=== PATIENT | male | born 1960 | race Caucasian/White ===

== ENCOUNTER 2022-10-19 08:21 | Emergency (ER) | payer OTHER ==
[2022-10-19] MEDS ORDERED: Amiodarone 150 MG/3 ML VIAL ONE (08:41)
[2022-10-19] MEDS ORDERED: fentaNYL 50 mcg/mL 1 mL Vial ONE ×2 (08:43→08:55)
[2022-10-19] MEDS ORDERED: Amiodarone 450 MG in Dextrose 5% in Water 250 ML IVPB SCH (08:45)
[2022-10-19 09:20] LABS: INR-International Normal Ratio 3.6; Prothrombin Time 37.8 sec (12.0-14.7)
[2022-10-19 09:21] LABS: PTT 71.2 sec (22.9-36.1)
[2022-10-19 10:04] LABS: Hemoglobin 13.7 g/dL (14.0-18.0); Mean Corpuscular HGB CONC 33.6 g/dL (32.0-36.0); Mean Corpuscular Hemoglobin 33.5 pg (27.0-31.0); Mean Corpuscular Volume 99.8 fl (78.0-98.0); Mean Platelet Volume 6.8 fL (7.4-10.4); Platelet Count 310 10x3/uL (130-400); RBC Distribution Width 12.6 % (11.5-14.5); Red Blood Cell (RBC) Count 4.08 mill/uL (4.70-6.10); White Blood Cell (WBC) Count 6.4 10x3/uL (4.8-10.8)
[2022-10-19] MEDS ORDERED: Heparin 10,000 UNITS/ 10 ML VIAL ONE (10:07)
[2022-10-19] MEDS ORDERED: Heparin 25,000 units/D5W 0 ML ONE (10:07)
[2022-10-19 10:13] LABS: Chloride 108 mmol/L (98-107); Sodium 138 mmol/L (136-145)
[2022-10-19 10:14] LABS: Calcium 8.8 mg/dL (7.8-10.44); Glucose 88 mg/dL (80-115)
[2022-10-19 10:15] LABS: Globulin 3.4 g/dL (2.4-3.5); Protein, Total 7.4 g/dL (5.8-8.1)
[2022-10-19 10:16] LABS: Anion Gap 15 mmol/L (10-20); Bilirubin, Total 0.3 mg/dL (0.2-1.2); Carbon Dioxide 20 mmol/L (23-31)
[2022-10-19 10:17] LABS: Alkaline Phosphatase 57 U/L (40-110)
[2022-10-19 10:18] LABS: Calc. Creatinine Clearance 0 mL/min (70-130); Estimated GFR 34
[2022-10-19 10:19] LABS: AST (SGOT) 39 U/L (5-34); BUN (Urea Nitrogen) 20 mg/dL (8.4-25.7)
[2022-10-19 10:20] LABS: ALT (SGPT) 17 U/L (8-55); Magnesium 2.2 mg/dL (1.6-2.6)
[2022-10-19 10:25] LABS: Band 8 % (5-11); Lymphocytes 21 % (21-51); MDiff Complete? YES; Monocytes 8 % (0-10); Neutrophil 62 % (42-75); Platelet Morphology Comment Appears Adequate; Polychromasia SLIGHT = 2-3 cells (100X) (0-2/hpf)
[2022-10-19 12:54] LABS: SARS-CoV-2 NAA Rapid Test Not Detected (NotDetected)
== END 2022-10-19 15:17 | disposition short-term general hospital (02) ==
LOC: ERS 08:21
DX: I47.20 Ventricular tachycardia, unspecified (principal); I10 Essential (primary) hypertension; E78.5 Hyperlipidemia, unspecified; Z87.891 Personal history of nicotine dependence; Z79.82 Long term (current) use of aspirin; Z20.822 Contact with and (suspected) exposure to COVID-19; Z79.01 Long term (current) use of anticoagulants; Z79.899 Other long term (current) drug therapy
CPT/HCPCS: 36415; 71045; 80053; 83735; 83880; 84484; 85025; 85610; 85730; 86850; 86900; 86901; 92960; 93005; 96374; 96375; J0282; J1644; J3010; J7070; U0002

== ENCOUNTER 2023-01-26 10:21 | Inpatient (IN) | payer OTHER ==
[2023-01-26 11:09] LABS: #Basophils 0.1 thou/uL (0.0-0.2); #Eosinphils 0.1 thou/uL (0.0-0.7); #Monocytes 0.5 thou/uL (0.11-0.59); %Basophils 1.2 % (0.0-1.0); %Eosinophils 2.1 % (0.0-10.0); %Lymphocytes 28.7 % (21.0-51.0); %Monocytes 10.1 % (0.0-10.0); %Neutrophils 57.7 % (42.0-75.0); Hemoglobin 11.8 g/dL (14.0-18.0); Mean Corpuscular HGB CONC 33.7 g/dL (32.0-36.0); Mean Corpuscular Volume 94.9 fl (78.0-98.0); Mean Platelet Volume 9.4 fL (7.4-10.4); Platelet Count 221 10x3/uL (130-400); RBC Distribution Width 13.1 % (11.5-14.5); Red Blood Cell (RBC) Count 3.69 mill/uL (4.70-6.10); White Blood Cell (WBC) Count 5.2 10x3/uL (4.8-10.8)
[2023-01-26 11:33] LABS: ALT (SGPT) 13 U/L (8-55); AST (SGOT) 20 U/L (5-34); Albumin 4.3 g/dL (3.4-4.8); Alkaline Phosphatase 77 U/L (40-110); Anion Gap 14 mmol/L (10-20); BUN (Urea Nitrogen) 16 mg/dL (8.4-25.7); Bilirubin, Total 0.3 mg/dL (0.2-1.2); Calc. Creatinine Clearance 0 mL/min (70-130); Calcium 9.6 mg/dL (7.8-10.44); Carbon Dioxide 26 mmol/L (23-31); Chloride 106 mmol/L (98-107); Estimated GFR 42; Globulin 3.3 g/dL (2.4-3.5); Glucose 82 mg/dL (80-115); Magnesium 2.2 mg/dL (1.6-2.6); Protein, Total 7.6 g/dL (5.8-8.1); Sodium 141 mmol/L (136-145)
[2023-01-26 11:55] LABS: CKMB 2.3 ng/mL (0-6.6)
[2023-01-26] MEDS ORDERED: Acetaminophen 325 MG TAB PO PRN (13:56)
[2023-01-26] MEDS ORDERED: Calcium Carbonate 500 MG ChewTAB PO PRN (13:56)
[2023-01-26] MEDS ORDERED: Acetaminophen 650 MG Suppository PR PRN (13:56)
[2023-01-26] MEDS ORDERED: Ondansetron ODT 4 MG TAB PO PRN (13:56)
[2023-01-26 15:06] VITALS: BMI 22.8
[2023-01-26] MEDS ORDERED: Nitroglycerin 0.4 MG TAB (25 Tab Bottle) SL PRN (17:10)
[2023-01-26] MEDS ORDERED: Cyanocobalamin 1000 MCG/ML VIAL IM SCH ×2 (17:15→19:15)
[2023-01-26] MEDS ORDERED: [UNRECOGNIZED DRUG - OTHER] IM SCH (17:15)
[2023-01-26] MEDS: Sodium Chloride 0.9% 1,000 ML IV SCH (17:20)
[2023-01-26 17:59] LABS: Troponin I 0.078 ng/mL (< 0.028)
[2023-01-26] MEDS ORDERED: Ipratropium Bromide 2.5 ml Neb NEB SCH (19:15)
[2023-01-26] MEDS: Terazosin HCl 1 MG CAP PO SCH (20:15)
[2023-01-26] MEDS: Atorvastatin Calcium 40 MG TAB PO SCH (20:15)
[2023-01-26] MEDS: Aripiprazole 10 MG TAB PO SCH (20:16)
[2023-01-26 20:41] LABS: INR-International Normal Ratio 1.3; Prothrombin Time 16.3 sec (12.0-14.7)
[2023-01-26 20:47] LABS: Troponin I 0.043 ng/mL (< 0.028)
[2023-01-26] MEDS: Warfarin Sodium 2.5 MG TAB PO SCH (21:46)
[2023-01-27 04:47] LABS: #Basophils 0.1 thou/uL (0.0-0.2); #Eosinphils 0.1 thou/uL (0.0-0.7); #Monocytes 0.5 thou/uL (0.11-0.59); #Neutrophils 2.5 thou/uL (1.40-6.50); %Eosinophils 2.8 % (0.0-10.0); %Lymphocytes 34.7 % (21.0-51.0); %Monocytes 10.5 % (0.0-10.0); %Neutrophils 50.8 % (42.0-75.0); Hemoglobin 11.9 g/dL (14.0-18.0); Mean Corpuscular HGB CONC 31.7 g/dL (32.0-36.0); Mean Corpuscular Hemoglobin 31.6 pg (27.0-31.0); Mean Platelet Volume 9.5 fL (7.4-10.4); Platelet Count 200 10x3/uL (130-400); RBC Distribution Width 13.2 % (11.5-14.5); Red Blood Cell (RBC) Count 3.76 mill/uL (4.70-6.10); White Blood Cell (WBC) Count 4.9 10x3/uL (4.8-10.8)
[2023-01-27 05:16] LABS: Anion Gap 14 mmol/L (10-20); BUN (Urea Nitrogen) 17 mg/dL (8.4-25.7); Calc. Creatinine Clearance 40 mL/min (70-130); Calcium 8.5 mg/dL (7.8-10.44); Carbon Dioxide 16 mmol/L (23-31); Chloride 111 mmol/L (98-107); Estimated GFR 47; Glucose 87 mg/dL (80-115); Potassium 4.4 mmol/L (3.5-5.1); Sodium 137 mmol/L (136-145)
[2023-01-27] MEDS: Levothyroxine Sodium 100 MCG TAB PO SCH (05:20)
[2023-01-27] MEDS: Sodium Chloride 0.9% 1,000 ML IV SCH (05:20)
[2023-01-27 05:24] LABS: Mean Corpuscular Volume 99.7 fl (78.0-98.0)
[2023-01-27] MEDS: Ipratropium Bromide 2.5 ml Neb NEB SCH ×4 (07:27→18:56)
[2023-01-27] MEDS ORDERED: Ferrous Sulfate 325 MG TAB PO SCH (09:00)
[2023-01-27] MEDS: Lisinopril 2.5 MG TAB PO SCH (09:28)
[2023-01-27 12:27] LABS: INR-International Normal Ratio 1.2; Prothrombin Time 15.9 sec (12.0-14.7)
[2023-01-27] MEDS: Clopidogrel Bisulfate 75 MG TAB PO SCH (16:03)
[2023-01-27] MEDS: Atorvastatin Calcium 40 MG TAB PO SCH (20:13)
[2023-01-27] MEDS: Amiodarone 200 MG TAB PO SCH (20:13)
[2023-01-27] MEDS: Aripiprazole 10 MG TAB PO SCH (20:13)
[2023-01-27] MEDS: Terazosin HCl 1 MG CAP PO SCH (20:13)
[2023-01-27] MEDS: Warfarin Sodium 2.5 MG TAB PO SCH (20:14)
[2023-01-28 04:15] LABS: INR-International Normal Ratio 1.1
[2023-01-28] MEDS: Levothyroxine Sodium 100 MCG TAB PO SCH (05:32)
[2023-01-28] MEDS: Ipratropium Bromide 2.5 ml Neb NEB SCH ×4 (07:20→19:16)
[2023-01-28] MEDS: Clopidogrel Bisulfate 75 MG TAB PO SCH (09:22)
[2023-01-28] MEDS: Lisinopril 2.5 MG TAB PO SCH (09:22)
[2023-01-28] MEDS: Amiodarone 200 MG TAB PO SCH ×3 (09:22→20:11)
[2023-01-28] MEDS: Terazosin HCl 1 MG CAP PO SCH (20:10)
[2023-01-28] MEDS: Aripiprazole 10 MG TAB PO SCH (20:10)
[2023-01-28] MEDS: Atorvastatin Calcium 40 MG TAB PO SCH (20:10)
[2023-01-28] MEDS: Warfarin Sodium 2.5 MG TAB PO SCH (20:11)
[2023-01-29 04:50] LABS: INR-International Normal Ratio 1.1; Prothrombin Time 14.5 sec (12.0-14.7)
[2023-01-29] MEDS: Levothyroxine Sodium 100 MCG TAB PO SCH (05:16)
[2023-01-29 06:38] LABS: #Basophils 0.1 thou/uL (0.0-0.2); #Eosinphils 0.2 thou/uL (0.0-0.7); #Monocytes 0.6 thou/uL (0.11-0.59); #Neutrophils 3.8 thou/uL (1.40-6.50); %Basophils 0.8 % (0.0-1.0); %Eosinophils 2.6 % (0.0-10.0); %Lymphocytes 25.9 % (21.0-51.0); %Monocytes 9.5 % (0.0-10.0); %Neutrophils 60.9 % (42.0-75.0); Hemoglobin 11.7 g/dL (14.0-18.0); Mean Corpuscular HGB CONC 34.5 g/dL (32.0-36.0); Mean Corpuscular Hemoglobin 31.8 pg (27.0-31.0); Mean Corpuscular Volume 92.1 fl (78.0-98.0); Mean Platelet Volume 9.3 fL (7.4-10.4); Platelet Count 220 10x3/uL (130-400); RBC Distribution Width 13.2 % (11.5-14.5); Red Blood Cell (RBC) Count 3.68 mill/uL (4.70-6.10); White Blood Cell (WBC) Count 6.2 10x3/uL (4.8-10.8)
[2023-01-29 07:00] LABS: Anion Gap 5 mmol/L (10-20); BUN (Urea Nitrogen) 18 mg/dL (8.4-25.7); Calc. Creatinine Clearance 34 mL/min (70-130); Calcium 9.1 mg/dL (7.8-10.44); Carbon Dioxide 27 mmol/L (23-31); Chloride 108 mmol/L (98-107); Estimated GFR 39; Glucose 93 mg/dL (80-115); Potassium 4.4 mmol/L (3.5-5.1); Sodium 136 mmol/L (136-145)
[2023-01-29] MEDS: Ipratropium Bromide 2.5 ml Neb NEB SCH ×2 (07:45→12:19)
[2023-01-29] MEDS: Clopidogrel Bisulfate 75 MG TAB PO SCH (08:46)
[2023-01-29] MEDS: Amiodarone 200 MG TAB PO SCH (08:46)
[2023-01-29] MEDS: Lisinopril 2.5 MG TAB PO SCH (09:11)
[2023-01-29 12:12] VITALS: BP 105/51; TEMP 98.3
[2023-02-01] MEDS ORDERED: Cyanocobalamin 1000 MCG/ML VIAL IM SCH (09:00)
== END 2023-01-29 12:44 | DRG 310 ==
LOC: EEVIPCON 10:21 → ERS 10:21 → 2SW 14:50 → OBSVTOIN 01-27 16:54
PROVIDERS: ADMIT Family Medicine; ATTEND Family Medicine
DX: I47.20 Ventricular tachycardia, unspecified (principal); N18.32 Chronic kidney disease, stage 3b; I12.9 Hypertensive chronic kidney disease with stage 1 through stage 4 chronic kidney disease, or unspecified chronic kidney disease; E78.5 Hyperlipidemia, unspecified; K21.9 Gastro-esophageal reflux disease without esophagitis; J45.20 Mild intermittent asthma, uncomplicated; E53.8 Deficiency of other specified B group vitamins; F31.9 Bipolar disorder, unspecified; J44.9 Chronic obstructive pulmonary disease, unspecified; E03.9 Hypothyroidism, unspecified; Z88.1 Allergy status to other antibiotic agents; Z88.8 Allergy status to other drugs, medicaments and biological substances; I25.2 Old myocardial infarction; Z95.1 Presence of aortocoronary bypass graft; Z95.5 Presence of coronary angioplasty implant and graft; Z95.810 Presence of automatic (implantable) cardiac defibrillator; Z79.899 Other long term (current) drug therapy; Z79.890 Hormone replacement therapy; Z79.02 Long term (current) use of antithrombotics/antiplatelets; Z79.01 Long term (current) use of anticoagulants; Z82.49 Family history of ischemic heart disease and other diseases of the circulatory system; Z87.891 Personal history of nicotine dependence
CPT/HCPCS: 36415; 80048; 80053; 82553; 83735; 84484; 85025; 85610; 93005; 94640; G0378; J7050